=== PATIENT | female | born 2000 | race Caucasian/White ===

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

== ENCOUNTER 2021-04-04 18:35 | Emergency (ER) | payer MEDICAID ==
[~2021-04-04] VITALS: Ht 165.1 cm; Wt 93.9 kg
[2021-04-04 19:24] VITALS: BP 140/97
--- NOTE | 2021-04-04 19:48 | NUR ---
Dr. Castelan examining patient.
--- NOTE | 2021-04-04 20:02 | NUR ---
PATIENT RETURNED FROM XRAY AND TAKEN TO TENT.
--- NOTE | 2021-04-04 20:05 | NUR ---
NOVEL SWAB COLLECTED AND TAKEN TO LAB.
--- NOTE | 2021-04-04 20:20 | NUR ---
SEE COMPLETE ASSESSMENT.
[2021-04-04] MEDS ORDERED: ONDA-24 PO (20:34)
[2021-04-04 20:40] VITALS: BP 132/87
== END 2021-04-04 20:40 | disposition home or self-care (01) ==
LOC: MED 18:35
DX: B34.9 Viral infection, unspecified (principal); Z20.822 Contact with and (suspected) exposure to COVID-19; R11.2 Nausea with vomiting, unspecified; Z79.899 Other long term (current) drug therapy
CPT/HCPCS: 71045; 99284; U0003

== ENCOUNTER 2021-04-23 00:10 | Emergency (ER) | payer MEDICAID ==
[~2021-04-23] VITALS: Ht 165.1 cm; Wt 90.3 kg
[~2021-04-23 00:10] MED LIST: ONDA-24 PO
[2021-04-23 00:22] VITALS: BP 121/89
[2021-04-23] MEDS ORDERED: ACETAMINOPHEN EXTRA STRENGTH 500 MG TAB PO ONE (00:30)
[2021-04-23] MEDS ORDERED: ONDANSETRON 4 MG ODT PO ONE (00:30)
[2021-04-23 02:15] VITALS: BP 121/89
--- NOTE | 2021-04-23 02:15 | NUR ---
Patient discharged with v/s stable. Written and verbal after care instructions given and explained. Patient verbalized understanding. Ambulatory with steady gait. All questions addressed prior to discharge. Advised to follow up with PMD.
== END 2021-04-23 02:15 | disposition home or self-care (01) ==
LOC: MED 00:10
DX: U07.1 COVID-19 (principal); Z79.899 Other long term (current) drug therapy
CPT/HCPCS: 71045; 93005; 99283; Q0162

== ENCOUNTER 2024-04-19 05:45 | Emergency (ER) | payer SELFPAY ==
[~2024-04-19] VITALS: Ht 167.6 cm; Wt 107.5 kg
[~2024-04-19 05:45] MED LIST changes: +ONDA-188 PO; -ONDA-24 PO
[2024-04-19 05:49] VITALS: BP 140/88; PULSE 126; RESP 22; TEMP 101; O2SAT 98
[2024-04-19] MEDS: KETOROLAC 30 MG/ML VIAL IVP ONE (06:06)
[2024-04-19] MEDS: NACL 0.9% 1,000 ML IV ONE (06:06)
[2024-04-19] MEDS: ONDANSETRON 4 MG/2 ML VIAL IVP ONE (06:15)
[2024-04-19] MEDS ORDERED: ACETAMINOPHEN 325 MG TAB ONE (06:21)
[2024-04-19] MEDS: ACETAMINOPHEN 325 MG TAB PO ONE (06:31)
[2024-04-19 06:47] LABS: BILIRUBIN,URINE NEGATIVE (NEGATIVE); BLOOD, URINE 3+ (NEGATIVE); COLOR,URINE YELLOW (YELLOW); LEUKOCYTE ESTERASE ,URINE TRACE (NEGATIVE); NITRITE, URINE NEGATIVE (NEGATIVE); PROTEIN,URINE TRACE (NEGATIVE); UGLUCOSE NEGATIVE (NEGATIVE); UROBILINOGEN,URINE 0.2 EU/dL (0.2 - 1)
[2024-04-19 06:59] LABS: APPEARANCE,URINE SLIGHTLY HAZY (CLEAR)
[2024-04-19 07:02] LABS: BACTERIA,URINE 2+ /HPF (None Seen); MUCUS,URINE 2+ /LPF (None Seen); RBC,URINE TOO NUMEROUS TO COUN /HPF (0-5); SQUAMOUS EPITHELIAL CELL,UR 20-50 /LPF (0-3 (FEW))
[2024-04-19 07:11] LABS: FLU A ANTIGEN negative (NEGATIVE); FLU B ANTIGEN negative (NEGATIVE)
[2024-04-19] MEDS ORDERED: ONDA-188 SL (07:39)
[2024-04-19 07:52] VITALS: BP 111/67; PULSE 108; RESP 13; TEMP 98.5; O2SAT 97
== END 2024-04-19 07:52 | disposition home or self-care (01) ==
LOC: MED 05:45
DX: U07.1 COVID-19 (principal); Z79.1 Long term (current) use of non-steroidal anti-inflammatories (NSAID)
CPT/HCPCS: 81001; 81025; 87086; 87426; 87804; 96361; 96374; 96375; 99285; J1885; J2405; J7030